=== PATIENT | female | born 1995 | race Hispanic/Latino ===

== ENCOUNTER 2018-02-18 12:42 | Emergency (ER) | payer SELFPAY ==
[~2018-02-18] VITALS: Ht 167.6 cm; Wt 99.8 kg
--- NOTE | 2018-02-18 13:29 | Diagnostic Imaging Report ---
PROCEDURE:X-RAY LEFT FINGER COMPARISON:None. INDICATIONS:SLAMMED TIP OF LT. INDEX FINGER IN CAR DOOR FINDINGS: 3 views of the left index finger (AP, lateral, and oblique) No fracture or dislocation. Joint spaces are maintained. No definite soft tissue abnormality. CONCLUSION: No fracture of the left index finger Dictated by: Michael Stokes M.D. on 02/18/2018 at 13:31 Electronically approved by: Michael Stokes M.D. on 02/18/2018 at 13:31
== END 2018-02-18 13:48 | disposition home or self-care (01) ==
LOC: ER 12:42
DX: S60.022A Contusion of left index finger without damage to nail, initial encounter (principal); S60.411A Abrasion of left index finger, initial encounter; S67.191A Crushing injury of left index finger, initial encounter; W23.1XXA Caught, crushed, jammed, or pinched between stationary objects, initial encounter; Y92.008 Other place in unspecified non-institutional (private) residence as the place of occurrence of the external cause
CPT/HCPCS: 99283

== ENCOUNTER 2023-03-29 14:19 | Emergency (ER) | payer OTHER ==
[~2023-03-29] VITALS: Ht 167.6 cm; Wt 104.0 kg
[2023-03-29] MEDS ORDERED: TRAMADOL HCL 50 MG TAB PO ONE (14:31)
[2023-03-29] MEDS ORDERED: TRAMADOL HCL 50 MG TAB ONE (14:46)
[2023-03-29] MEDS ORDERED: ULTRAM 50MG50 MG PO (15:10)
[2023-03-29 16:04] VITALS: O2SAT 99
== END 2023-03-29 16:04 | disposition home or self-care (01) ==
LOC: FSED 14:23
DX: S93.491A Sprain of other ligament of right ankle, initial encounter (principal); X50.1XXA Overexertion from prolonged static or awkward postures, initial encounter; Y93.01 Activity, walking, marching and hiking; Y92.89 Other specified places as the place of occurrence of the external cause
CPT/HCPCS: 99284